=== PATIENT | male | born 1960 | race Caucasian/White ===

== ENCOUNTER 2022-09-23 06:34 | Emergency (ER) | payer OTHER ==
[2022-09-23] MEDS ORDERED: MORPHINE 2 MG/ML SYR ONE (06:58)
[2022-09-23] MEDS ORDERED: ASPIRIN 81 MG CHEWABLE TABLET ONE (06:58)
[2022-09-23] MEDS ORDERED: ONDANSETRON 4 MG/2 ML VIAL ONE (06:58)
[2022-09-23] MEDS ORDERED: NA CHLORIDE 0.9% 1,000 ML ONE (06:59)
[2022-09-23 07:19] LABS: Absolute Lymphocytes (CBC) 0.9 K/uL (0.7-4.9); Hematocrit 40.4 % (39.6-49.0); Lymphocytes % 10.3 % (15.3-44.8); MCV 88.9 fL (80-100); MPV 9.1 fL (7.6-11.3); RBC Red Blood Cell Count 4.54 M/uL (4.33-5.43)
[2022-09-23 07:22] LABS: Protime INR 1.11
[2022-09-23 07:50] LABS: Bilirubin Direct 0.2 mg/dL (0-0.2); Bilirubin Total 0.8 mg/dL (0.2-1.0); Magnesium 1.9 mg/dL (1.6-2.4); Potassium 3.6 mEq/L (3.5-5.1); Protein, Total 7.7 g/dL (6.4-8.2); Troponin High Sensitivity 19.3 pg/mL (<58.9)
--- NOTE | 2022-09-23 09:13 | RAD REPORT ---
EXAM DESCRIPTION: Kaleigh Single View09/23/2022 8:06 am CLINICAL HISTORY: CHEST PAIN COMPARISON: No comparisons TECHNIQUE: Portable AP view of the chest. FINDINGS: The lungs are clear. No pneumothorax or effusion. The cardiomediastinal contours are unrem arkable. IMPRESSION: No acute cardiopulmonary process.
[2022-09-23] MEDS ORDERED: MAGNES/ALUMIN/SIMET 30ML UCUP ONE (09:29)
[2022-09-23] MEDS ORDERED: LIDOCAINE VISCOUS 2% SOLN 15 ML UDC ONE (09:29)
--- NOTE | 2022-09-23 09:57 | EDPHYS ---
Physician Documentation [facility] Name: Jude Tyson Age: 62 yrs Sex: Male : 1960 Arrival Date: 09/23/2022 Time: 06:34 Bed 4 Private MD: ED Physician Broderick Padron HPI: 09/23 07:58 This 62 yrs old Male presents to ER via Ambulatory with complaints of Chest Pain. ms3 07:58 62-year-old male with past medical history of hypertension presents for chest pain that ms3 began on Monday. Patient states the discomfort is a 3/10 described as tightness and located substernally. Patient states the pain is worse when swallowing. Patient denies alleviating factors.. Historical: - Allergies: 06:44 BACITRACIN; kl - Home Meds: 06:44 Lisinopril Oral [Active]; kl - PMHx: 06:45 Hypertensive disorder; kl - PSHx: 06:45 hernia; kl - Immunization history:: Adult Immunizations up to date. - Social history:: Smoking status: Patient denies any tobacco usage or history of. ROS: 07:58 Constitutional: Negative for fever, and chills. Neck: Negative for injury, pain, and ms3 swelling. 07:58 Respiratory: Negative for shortness of breath, cough, wheezing, and pleuritic chest pain, Abdomen/GI: Negative for abdominal pain, nausea, vomiting, diarrhea, and constipation, MS/Extremity: Negative for injury and deformity, Skin: Negative for injury, rash, and discoloration. 07:58 Cardiovascular: Positive for chest pain. 07:58 All other systems are negative. Exam: 07:58 Constitutional: This is a well developed, well nourished patient who is awake, alert, ms3 and in no acute distress. Head/Face: Normocephalic, atraumatic. Neck: Trachea midline, no cervical lymphadenopathy. Supple, full range of motion without nuchal rigidity, or vertebral point tenderness. No Meningismus. Chest/axilla: Normal chest wall appearance and motion. Nontender with no deformity. 07:58 Respiratory: Lungs have equal breath sounds bilaterally, clear to auscultation and percussion. No rales, rhonchi or wheezes noted. No increased work of breathing, no retractions or nasal flaring. Abdomen/GI: Soft, non-tender, with normal bowel sounds. No distension or tympany. No guarding or rebound. No evidence of tenderness throughout. Skin: Warm, dry with normal turgor. Normal color with no rashes, no lesions, and no evidence of cellulitis. 07:58 Cardiovascular: Rate: normal, Rhythm: regular, Pulses: no pulse deficits are appreciated. 07:58 ECG was reviewed by the Attending Physician. Vital Signs: 06:40 BP 186 / 112; Pulse 78; Resp 18; Temp 97.9(TE); Pulse Ox 98% on R/A; Weight 104.33 kg; kl Height 6 ft. 3 in. ; Pain 3/10; 07:43 BP 176 / 100; Pulse 68; Resp 16; Pulse Ox 97% ; bp 08:48 BP 167 / 100; Pulse 72; Resp 21; Pulse Ox 98% ; bp 10:05 BP 160 / 101; Pulse 73; Resp 16; Pulse Ox 98% ; bp 06:40 Body Mass Index 28.75 (104.33 kg, 190.5 cm) kl 06:40 Pain Scale: Adult kl MDM: 06:43 Patient medically screened. neri 09:57 Differential diagnosis: abnormal EKG, acute myocardial infarction, chest wall pain, ms3 pancreatitis. HEART Score: History: Slightly Suspicious (0), ECG: Non specific repolarization disturbance / LBTB / PM (1), Age: > 45 and < 65 years (1), Risk Factors: 1 or 2 risk factors (1), Troponin: < or = 1 x Normal Limit (0), Total Score = 3. The patient was given aspirin in the Emergency Department. Data reviewed: vital signs, nurses notes, lab test result(s), EKG, radiologic studies, and as a result, I will discharge patient. Consideration of Admission/Observation Repeat troponin decreased to 17.6. I considered the following discharge prescriptions or medication management in the emergency department Medications were administered in the Emergency Department. See MAR. Independent interpretation of the following test(s) in the Emergency Department EKG: See my EKG interpretation above property assessment monitor: rate is 68 beats/min, Rhythm is normal sinus rhythm, regular, with no ectopy, Interpretation: normal rate, normal rhythm. Counseling: I had a detailed discussion with the patient and/or guardian regarding: the historical points, exam findings, and any diagnostic results supporting the discharge/admit diagnosis, lab results, radiology results, the need for outpatient follow up, to return to the emergency department if symptoms worsen or persist or if there are any questions or concerns that arise at home. ED course: Discussed labs, chest x-ray with the patient. 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 Patient understands and agrees with plan. All questions were answered. Return precautions discussed include worsening symptoms, or any other concerns. On reevaluation patient improved, alert and oriented x4, no apparent distress, nontoxic-appearing, ambulatory in emergency department, speaking full sentences. 09/23 06:44 Order name: Basic Metabolic Panel; Complete Time: 07:57 [facility] 09/23 06:44 Order name: CBC with Diff; Complete Time: 07:57 [facility] 09/23 06:44 Order name: LFT's; Complete Time: 07:57 [facility] 09/23 06:44 Order name: Magnesium; Complete Time: 07:57 [facility] 09/23 06:44 Order name: NT PRO-BNP; Complete Time: 07:57 [facility] 09/23 06:44 Order name: PT-INR; Complete Time: 07:57 [facility] 09/23 06:44 Order name: Troponin HS; Complete Time: 07:57 [facility] 09/23 06:44 Order name: Lipase; Complete Time: 07:57 [facility] 09/23 09:13 Order name: Troponin High Sensitivity; Complete Time: 09:59 ms3 09/23 06:44 Order name: XRAY Chest (1 view); Complete Time: 09:18 [facility] 09/23 06:44 Order name: EKG; Complete Time: 06:45 [facility] 09/23 06:44 Order name: Cardiac monitoring; Complete Time: 07:17 [facility] 09/23 06:44 Order name: EKG - Nurse/Tech; Complete Time: 07:17 [facility] 09/23 06:44 Order name: IV Saline Lock; Complete Time: 07:17 [facility] 09/23 06:44 Order name: Labs collected and sent; Complete Time: 07:18 [facility] 09/23 06:44 Order name: O2 Per Protocol; Complete Time: 07:18 [facility] 09/23 06:44 Order name: O2 Sat Monitoring; Complete Time: 07:18 [facility] EC:58 Rate is 76 beats/min. Rhythm is regular. QRS Gustine is Normal. NV interval is normal. QRS ms3 interval is normal. Clinical impression: NSR w/ Non-specific ST/T Changes. Interpreted by me. Reviewed by me. Administered Medications: 06:55 Drug: Aspirin PO Chewable Tablet 324 mg Route: PO; pf1 07:10 CANCELLED (Physician Discretion): NS 0.9% IV 1000 ml IV at 125 ml/hr continuous ph 07:10 CANCELLED (Duplicate Order): morphine IVP or IV 2 mg IVP once over 4 mins ph 07:17 Drug: morphine IVP or IV 2 mg Route: IVP; Infused Over: 4 mins; Site: left antecubital; bp 07:17 Drug: Ondansetron IVP 4 mg Route: IVP; Site: left antecubital; bp 09:30 Drug: GI Cocktail without - (Maalox PO Suspension 30 ml, Lidocaine Mucous bp Membrane Liquid 2 % 15 ml) Route: PO; Disposition Summary: 09/23/22 09:56 Discharge Ordered Location: Home ms3 Condition: Stable ms3 Diagnosis - Chest pain, unspecified ms3 Followup: ms3 - With: Private Physician - When: 2 - 3 days - Reason: Recheck today's complaints Discharge Instructions: - Discharge Summary Sheet ms3 - Nonspecific Chest Pain, Adult ms3 Forms: - Medication Reconciliation Form ms3 - Thank You Letter ms3 - Antibiotic Education ms3 - Prescription Opioid Use ms3 Signatures: Dispatcher [employer] EDMS Zena Ron RN RN kl Anderson, Corey, MD MD cha Hall, Patricia, RN RN ph Peltier, Brian, RN RN bp Sims, Marcus, DO DO ms3 Serina reed RN RN pf1 Corrections: (The following items were deleted from the chart) 07:10 06:44 NS 0.9% IV 1000 ml IV at 125 ml/hr continuous ordered. neri ph 07:10 06:44 morphine IVP or IV 2 mg IVP once over 4 mins ordered. neri ph 07:10 07:10 NS 0.9% IV 1000 ml IV at 125 ml/hr continuous ordered. ph ph 07:52 06:45 Urinalysis+U.LAB.BRZ ordered. EDMS EDMS
--- NOTE | 2022-09-23 09:57 | ER ---
Nurse's Notes [facility] Name: Jude Tyson Age: 62 yrs Sex: Male : 1960 Arrival Date: 09/23/2022 Time: 06:34 Bed 4 Private MD: Diagnosis: Chest pain, unspecified Presentation: 09/23 06:40 Chief complaint: Patient states: mid sterna; chest pain off and on since Monday kl evening also reports right arm pain. Coronavirus screen: Vaccine status: Patient reports receiving the 2nd dose of the covid vaccine. Ebola Screen: Patient negative for fever greater than or equal to 101.5 degrees Fahrenheit, and additional compatible Ebola Virus Disease symptoms. Initial Sepsis Screen: Does the patient meet any 2 criteria? No. Patient's initial sepsis screen is negative. Does the patient have a suspected source of infection? No. Patient's initial sepsis screen is negative. Risk Assessment: Do you want to hurt yourself or someone else? Patient reports no desire to harm self or others. Onset of symptoms was September 21, 2022 at 18:00. 06:40 Method Of Arrival: Ambulatory 06:40 Acuity: CHESTER 2 Triage Assessment: 06:45 General: Appears in no apparent distress. comfortable, Behavior is calm, cooperative. kl Pain: Complains of pain in mid-sternal area Pain radiates to right arm. Cardiovascular: Reports chest pain, nausea, shortness of breath, also reports burning sensation. Historical: - Allergies: 06:44 BACITRACIN; kl - Home Meds: 06:44 Lisinopril Oral [Active]; kl - PMHx: 06:45 Hypertensive disorder; kl - PSHx: 06:45 hernia; kl - Immunization history:: Adult Immunizations up to date. - Social history:: Smoking status: Patient denies any tobacco usage or history of. Screenin:09 [facility] ED Fall Risk Assessment (Adult) History of falling in the last 3 months, pf1 including since admission No falls in past 3 months (0 pts) Confusion or Disorientation No (0 pts) Intoxicated or Sedated No (0 pts) Impaired Gait No (0 pts) Mobility Assist Device Used No (0 pt) Altered Elimination No (0 pt) Score/Fall Risk Level 0 - 2 = Low Risk. 10:05 Abuse screen: Denies threats or abuse. Denies injuries from another. Nutritional bp screening: No deficits noted. Tuberculosis screening: No symptoms or risk factors identified. Assessment: 07:00 General: Appears in no apparent distress. comfortable, well groomed, well developed, pf1 Behavior is calm, cooperative, appropriate for age, quiet. 07:00 Pain: Complains of pain in right arm and mid-sternal area and chest Pain currently is 3 pf1 out of 10 on a pain scale. Pain began 2-3 days ago. Neuro: No deficits noted. Level of Consciousness is awake, alert, obeys commands, Oriented to person, place, time, situation. Cardiovascular: Reports chest pain, nausea, Capillary refill < 3 seconds Patient's skin is warm and dry. Respiratory: No deficits noted. Airway is patent Trachea midline Respiratory effort is even, unlabored, Respiratory pattern is regular, symmetrical, Breath sounds are clear bilaterally. GI: Abdomen is round non-distended, Bowel sounds present X 4 quads. Abd is soft and non tender X 4 quads. GI: Reports nausea. : No deficits noted. No signs and/or symptoms were reported regarding the genitourinary system. EENT: No deficits noted. No signs and/or symptoms were reported regarding the EENT system. 08:49 Reassessment: Patient appears in no apparent distress at this time. Patient is alert, bp oriented x 3, equal unlabored respirations, skin warm/dry/pink. 10:05 Reassessment: PT DC HOME AMBULATORY. Pain: Denies pain. bp Vital Signs: 06:40 BP 186 / 112; Pulse 78; Resp 18; Temp 97.9(TE); Pulse Ox 98% on R/A; Weight 104.33 kg; kl Height 6 ft. 3 in. ; Pain 3/10; 07:43 BP 176 / 100; Pulse 68; Resp 16; Pulse Ox 97% ; bp 08:48 BP 167 / 100; Pulse 72; Resp 21; Pulse Ox 98% ; bp 10:05 BP 160 / 101; Pulse 73; Resp 16; Pulse Ox 98% ; bp 06:40 Body Mass Index 28.75 (104.33 kg, 190.5 cm) 06:40 Pain Scale: Adult ED Course: 06:35 Patient arrived in ED. ja2 06:43 Lewis Luna MD is Attending Physician. neri 06:44 Triage completed. 07:00 No provider procedures requiring assistance completed. Inserted saline lock: 20 gauge pf1 in left antecubital area, using aseptic technique. Blood collected. 07:00 Patient has correct armband on for positive identification. Bed in low position. Call bp light in reach. Side rails up X2. Adult w/ patient. Client placed on continuous cardiac and pulse oximetry monitoring. NIBP monitoring applied. 07:01 Attending Physician role handed off by Lewis Luna MD ms3 07:01 Broderick Padron DO is Attending Physician. ms3 07:09 Lisbet Chavira, TC is Primary Nurse. ph 07:10 Patient maintains SpO2 saturation greater than 95% on room air. pf1 08:08 XRAY Chest (1 view) In Process Unspecified. EDMS 10:05 IV discontinued, intact, bleeding controlled, No redness/swelling at site. Pressure bp dressing applied. Administered Medications: 06:55 Drug: Aspirin PO Chewable Tablet 324 mg Route: PO; pf1 07:10 CANCELLED (Physician Discretion): NS 0.9% IV 1000 ml IV at 125 ml/hr continuous ph 07:10 CANCELLED (Duplicate Order): morphine IVP or IV 2 mg IVP once over 4 mins ph 07:17 Drug: morphine IVP or IV 2 mg Route: IVP; Infused Over: 4 mins; Site: left antecubital; bp 07:17 Drug: Ondansetron IVP 4 mg Route: IVP; Site: left antecubital; bp 09:30 Drug: GI Cocktail without - (Maalox PO Suspension 30 ml, Lidocaine Mucous bp Membrane Liquid 2 % 15 ml) Route: PO; Medication: 10:05 VIS not applicable for this client. bp Outcome: 09:56 Discharge ordered by . ms3 10:05 Discharged to home ambulatory. bp 10:05 Condition: stable 10:05 Discharge instructions given to patient, Instructed on discharge instructions, follow up and referral plans. Demonstrated understanding of instructions, follow-up care. 10:06 Patient left the ED. bp Signatures: Dispatcher [employer] EDMS Zena Ron RN RN kl Anderson, Corey, MD MD cha Hall, Patricia, RN RN ph Peltier, Brian, RN RN bp Broderick Padron DO DO ms3 Neptali, Julia ja2 reed, Serina, RN RN pf1 Corrections: (The following items were deleted from the chart) 08:50 08:49 Reassessment: PT DX WITH APPENDICITIS. ADMIT INITIATED bp bp
[2022-09-23 10:28] VITALS: TEMP 97.9
[2022-09-23 10:33] VITALS: O2SAT 98
[2022-09-23 10:35] VITALS: BP 160/101
--- NOTE | 2022-09-24 15:21 | EKG ---
Test Date: 2022-09-23 Test Time: 06:46:47 [facility]: BRYCE MEASUREMENT RESULTS: Intervals: Rate: 76 FL: 180 QRSD: 80 QT: 394 QTc: 443 Gratis: P: 42 FL: 180 QRS: 20 T: 66 INTERPRETIVE STATEMENTS: Normal sinus rhythm Normal ECG No previous ECG available for comparison Electronically Signed On 09-24-22 15:21:00 CDT by Jake Nova
== END 2022-09-23 10:06 | disposition home or self-care (01) ==
LOC: ER 06:34
DX: R07.89 Other chest pain (principal); I10 Essential (primary) hypertension; Z88.1 Allergy status to other antibiotic agents
CPT/HCPCS: 93005; 85025; 80048; 36415; 83735; 85610; 80076; 84484 ×2; 83690; 83880; 71045; J2270; J2405; J7030; 96374; 96375; 99285